=== PATIENT | female | born 1970 | race Caucasian/White ===

== ENCOUNTER → 2021-12-13 09:04 | Outpatient (CLI) | payer OTHER, SELFPAY ==
[2021-12-13 10:51] LABS: Add Manual Diff / Slide Review NO; Basophils Absolute Auto 0 /uL (0-100); Basophils Percent Auto 0.5 % (0-2); Eosinophils Absolute Auto 200 /uL (0-450); Eosinophils Percent Auto 2.8 % (2-4); Hematocrit 36.9 % (36-46); Hemoglobin 12.6 g/dL (12.0-16.0); Lymphocytes Absolute Auto 2300 /uL (1100-4500); Lymphocytes Percent Auto 27.2 % (25-40); Mean Corpuscular HGB Conc 34.3 % (30-36); Mean Corpuscular Hemoglobin 30.1 PG (26-34); Mean Corpuscular Volume 87.8 fL (80-100); Monocytes Absolute Auto 600 /uL (0-900); Monocytes Percent Auto 7.1 % (3-14); Neutrophils Absolute Auto 5200 /uL (1500-7000); Neutrophils Percent Auto 62.4 % (50-75); Platelet Count 284 X10^3/uL (150-400); Red Cell Distribution Width 13.4 % (11.6-14.8); White Blood Cell Count 8.4 X10^3/uL (4.5-11.0)
[2021-12-13 11:30] LABS: Hemoglobin A1C% w Est Avg Glu 6.5 % (4.0-6.0)
[2021-12-13 12:00] LABS: HEMOLYSIS < 15 (0-50); Iron 79 ug/dL (37-170)
[2021-12-13 12:02] LABS: Alanine Aminotransferase 36 IU/L (<35); Albumin 4.5 g/dL (3.5-5.0); Albumin Globulin Ratio 1.2 (1.0-2.8); Alkaline Phosphatase 121 U/L (38-126); Aspartate Aminotransferase 28 IU/L (14-36); BUN Creatinine Ratio 25.7 (6-22); Bilirubin Total 0.5 mg/dL (0.2-1.3); Blood Urea Nitrogen 19 mg/dL (7-17); Calcium 9.3 mg/dL (8.4-10.2); Carbon Dioxide 25 mmol/L (22-32); Chloride 104 mmol/L (98-107); Cholesterol 208 mg/dL (140-199); Estimated Glomerular Filt Rate > 60 mL/min (>60); Globulin 3.8 g/dL (1.7-4.1); Glucose 120 mg/dL (70-100); HDL Cholesterol 42 mg/dL (40-60); HEMOLYSIS < 15 (0-50); LDL Cholesterol Calculated 147 mg/dL (<100); Potassium 4.7 mmol/L (3.4-5.1); Sodium 139 mmol/L (137-145); Total Protein 8.3 g/dL (6.3-8.2); Triglycerides 97 mg/dL (35-150)
[2021-12-13 12:10] LABS: Percent Iron Saturation 21 % (15-50); Total Iron Binding Capacity 371 ug/dL (265-497)
[2021-12-13 12:19] LABS: Vitamin D 25 Hydroxy (D3) 48.2 ng/mL (30.0-100.0)
[2021-12-13 12:25] LABS: Free T3, Triiodothyronine Free 3.07 pg/mL (2.77-5.27); Free T4, Direct Thyroxine 0.98 ng/dL (0.78-2.19); T4 Total Thyroxine 6.42 ug/dL (5.5-11.0); T7 (Free Thyroxine Index) 2.23 (1.65-3.89); Triiodothryronine T3 Uptake 34.7 % (23.5-40.5)
[2021-12-13 12:37] LABS: Thyroid Stimulating Hormone 1.68 uIU/mL (0.47-4.68)
[2021-12-13 12:39] LABS: Ferritin 60 ng/mL (6-137)
[2021-12-13 13:11] LABS: Folate 8.9 ng/mL (2.76-20.0); Vitamin B12 744 pg/mL (239-931)
[2021-12-13 13:57] LABS: Transferrin 280 mg/dL (206-381)
[2021-12-14 08:28] LABS: Thyroid Peroxidase Antibodies 377 IU/mL (0-34); Triiodothyronine T3 Total 129 ng/dL (71-180)
== END ==
DX: R14.0 Abdominal distension (gaseous) (principal); R53.83 Other fatigue; E66.8 Other obesity; E03.9 Hypothyroidism, unspecified; F90.9 Attention-deficit hyperactivity disorder, unspecified type
CPT/HCPCS: 80053; 80061; 82306; 82607; 82728; 82746; 83036; 83540; 83550; 84436; 84439; 84443; 84479; 84480; 84481; 84482; 85025; 86140; 86376

== ENCOUNTER → 2022-06-22 07:13 | Outpatient (CLI) | payer OTHER, SELFPAY | PROVIDERS: Visit Provider Registered Nurse | DX: J02.9 Acute pharyngitis, unspecified (principal) | CPT/HCPCS: 87070; 87077; 87147 ==

== ENCOUNTER → 2022-12-17 09:49 | Outpatient (CLI) | payer OTHER, SELFPAY ==
[2022-12-17 10:37] LABS: Cholesterol 178 mg/dL (140-199); Glucose 121 mg/dL (70-100); HDL Cholesterol 36 mg/dL (40-60); LDL Cholesterol Calculated 115 mg/dL (<100); Triglycerides 136 mg/dL (35-150)
[2022-12-17 11:07] LABS: Free T3, Triiodothyronine Free 3.25 pg/mL (2.77-5.27); Free T4, Direct Thyroxine 0.67 ng/dL (0.78-2.19)
[2022-12-17 11:20] LABS: Thyroid Stimulating Hormone 2.15 uIU/mL (0.47-4.68)
[2022-12-18 03:15] LABS: Labcorp Hemoglobin (Hb) A1c 6.3 % (4.8-5.6)
[2022-12-18 07:32] LABS: Thyroid Peroxidase Antibodies 229 IU/mL (0-34)
== END ==
PROVIDERS: PCP Naturopath; Referring Provider Naturopath; Visit Provider Naturopath
DX: E11.9 Type 2 diabetes mellitus without complications (principal); E06.3 Autoimmune thyroiditis
CPT/HCPCS: 36415; 80061; 82947; 83036; 84439; 84443; 84481; 86376

== ENCOUNTER → 2024-02-04 07:47 | Outpatient (CLI) | payer OTHER, SELFPAY ==
--- NOTE | 2024-02-04 | DI.US.S_ITS ---
PROCEDURE: US PELVIC COMPLETE INDICATIONS: IRREGULAR MENSTRUATION,MENOPAUSAL STATES TECHNIQUE: Real-time scanning was performed of the pelvic organs, with image documentation. Additional endovaginal scanning was necessary due to incomplete visualization of the adnexal and endometrial structures by transabdominal scanning. COMPARISON: None. FINDINGS: Uterus: Uterus is anteverted and normal in size at 4.8 x 2.7 x 4.0 cm. The myometrium is homogeneous. The endometrium measures 3 mm combined thickness. Ovaries: The right ovary measures 2.5 x 1.4 x 0.9 cm, with a calculated ovarian volume of 2.6 cc. The left ovary is not seen. The right ovary is normal in appearance. No adnexal masses. Other: No pathologic free abdominal or pelvic fluid. IMPRESSION: Normal appearance of the uterus and right ovary. The left ovary is not seen. We strive to produce accurate, complete, and clear reports of imaging services. To assist us in improving patient care, this report was composed using standard report templates and voice recognition software. Therefore, it may contain abnormal punctuation, insertions and/or omissions. Occasional wrong-word or sound-alike substitutions may occur. Though we review the report and make efforts to correct it, we do recommend that the report be read carefully in proper context to recognize any text inaccuracies. Dictated by: Lopez Reyes M.D. on 02/04/2024 at 11:53 Approved by: Lopez Reyes M.D. on 02/04/2024 at 11:56
== END ==
LOC: US 07:47
PROVIDERS: PCP Naturopath; Referring Provider Specialist; Visit Provider Specialist
DX: N92.6 Irregular menstruation, unspecified (principal); N95.1 Menopausal and female climacteric states
CPT/HCPCS: 76856